=== PATIENT | female | born 2000 | race Caucasian/White ===

== ENCOUNTER 2024-07-17 09:16 | Emergency (ER) | payer SELFPAY ==
[~2024-07-17] VITALS: Ht 157.5 cm; Wt 46.0 kg
[2024-07-17 09:22] VITALS: O2SAT 100
[2024-07-17 09:24] VITALS: BP 115/64; PULSE 98; RESP 18; TEMP 98.6; O2SAT 100
[2024-07-17] MEDS: ACETAMINOPHEN 325MG TABLET PO NR (09:45)
[2024-07-17 10:02] LABS: HEMOGLOBIN 11.2 g/dL (12.0-16.0); MEAN CORPUSCULAR HEMOGLOBIN 27.4 pg (28.0-32.0); MEAN CORPUSCULAR HGB CONC 32.9 g/dL (31.0-37.0); MEAN CORPUSCULAR VOLUME 83.5 fL (81.0-99.0); PLATELET 273 x1000/uL (130-400); RED BLOOD CELL COUNT 4.07 mill/uL (4.2-5.4); RED CELL DISTRIBUTION WIDTH 14.1 % (11.6-14.6); WHITE BLOOD COUNT 7.7 x1000/uL (4.5-11.0)
[2024-07-17 10:09] LABS: CHLORIDE 105 mEq/L (98-107); POTASSIUM 3.8 mEq/L (3.5-5.1); SODIUM 138 mEq/L (136-145)
[2024-07-17 10:10] LABS: CALCIUM 9.8 mg/dL (8.7-10.4); CARBON DIOXIDE 25 mEq/L (21-32)
[2024-07-17 10:15] LABS: CREATININE 0.5 mg/dL (0.6-1.0); GLUCOSE 94 mg/dL (70-105); UREA NITROGEN BLOOD 7 mg/dL (9-23)
[2024-07-17 10:17] LABS: ALANINE AMINOTRANSFERASE 45 IU/L (10-49); ALBUMIN 4.2 g/dL (3.2-4.8); ASPARTATE AMINOTRANSFERASE 27 IU/L (<34); BILIRUBIN TOTAL 0.7 mg/dL (0.1-1.0); PROTEIN TOTAL 6.5 g/dL (6.0-8.3)
[2024-07-17 10:35] LABS: B-HCG QUANTITATIVE 136983 mIU/mL (<3)
== END 2024-07-17 15:24 | disposition home or self-care (01) ==
LOC: ER 09:32
DX: O26.892 Other specified pregnancy related conditions, second trimester (principal); O09.32 Supervision of pregnancy with insufficient antenatal care, second trimester; R10.2 Pelvic and perineal pain; R51.9 Headache, unspecified; Z3A.14 14 weeks gestation of pregnancy
CPT/HCPCS: 36415; 76815; 80053; 84702; 85027; 99284